=== PATIENT | female | born 1995 | race Caucasian/White ===

== ENCOUNTER 2025-05-06 17:58 | Emergency (ER) | payer BC ==
[~2025-05-06] VITALS: Ht 160 cm; Wt 57.2 kg
[2025-05-06 18:14] VITALS: TEMP 97.9
[2025-05-06 19:03] LABS: PLATELET COUNT (AUTO) 303 K/uL (150-450); RED BLOOD CELL COUNT(AUTO) 4.40 MIL/uL (4.0-5.2); RED CELL DISTRIBUTION WIDTH 11.4 % (11.5-15.0); WHITE BLOOD COUNT (AUTO) 9.7 K/uL (4.3-11.0)
[2025-05-06 19:09] LABS: CALCIUM, SERUM 9.2 mg/dL (8.5-10.1); CREATININE 0.7 mg/dL (0.6-1.3); SODIUM SERUM 137.0 mmol/L (136-145); UREA NITROGEN, BLOOD 9.0 mg/dL (7-18)
[2025-05-06] MEDS ORDERED: POTASSIUM CHLORIDE 20 MEQ TAB.PRT.SR PO ONE (20:10)
[2025-05-06] MEDS ORDERED: LORAZEPAM 1 MG TABLET ONE (20:10)
[2025-05-06] MEDS: POTASSIUM CHLORIDE 20 MEQ TAB.PRT.SR PO STA (20:15)
[2025-05-06] MEDS: LORAZEPAM 1 MG TABLET PO ONE (20:15)
[2025-05-06] MEDS ORDERED: POTA10TA21 PO (21:31)
[2025-05-06] MEDS ORDERED: LORA-259 PO (21:31)
[2025-05-06 22:05] VITALS: BP 115/81; O2SAT 100
== END 2025-05-06 22:04 | disposition home or self-care (01) ==
LOC: ER 18:21
DX: F41.9 Anxiety disorder, unspecified (principal); R06.02 Shortness of breath; R07.89 Other chest pain; Z88.0 Allergy status to penicillin; Z88.1 Allergy status to other antibiotic agents; Z88.2 Allergy status to sulfonamides
CPT/HCPCS: 36415; 71045-TC; 80048-TC; 83735-TC; 84443-TC; 84484-TC; 84703-TC; 85025-TC; 85378-TC